=== PATIENT | male | born 1950 | race Caucasian/White ===

== ENCOUNTER 2017-03-11 06:04 | Inpatient (IN) | payer OTHER ==
[2017-03-01 09:45] VITALS: BMI 36.0
--- NOTE | 2017-03-01 10:21 | PAT Medication Instructions ---
Service Date Mar 01, 2017. Current Home Medication List Acetaminophen (Tylenol), 650 MG PO PRN Ascorbic Acid (Vitamin C), 1,000 MG PO QPM Aspirin (Aspirin Ec), 81 MG PO QAM Atenolol (Tenormin), 50 MG PO QAM Cholecalciferol (Vitamin D3), 1 TAB PO QPM Glipizide (Glucotrol), 10 MG PO QPM Ibuprofen Tab (Advil), 400 MG PO PRN Lisinopril (Zestril), 10 MG PO QAM Loratadine (Claritin), 10 MG PO PRN Metformin Hcl (Glucophage Ext Rel), 1,000 MG PO BID Multivitamin (Multivitamin), 1 TAB PO QPM Omeprazole (Prilosec), 20 MG PO QPM Vitamin E (Vitamin E 400 Iu), 400 INTER.UNIT PO QPM [Blue Emu], 1 DOSE TOP PRN [Magnesium], 250 MG PO QPM Medication Instructions For Your Scheduled Surgery - Hold the following medications 10 days prior to surgery: Vitamin E (Vitamin E 400 Iu), 400 INTER.UNIT PO QPM - Hold the following medications at surgeon's request: Ibuprofen Tab (Advil), 400 MG PO PRN - Hold the following medications 48 hours prior to surgery: Metformin Hcl (Glucophage Ext Rel), 1,000 MG PO BID - Hold the following medications 24 hours prior to surgery: [Blue Emu], 1 DOSE TOP PRN - Hold the following medications the morning of surgery: Lisinopril (Zestril), 10 MG PO QAM Loratadine (Claritin), 10 MG PO PRN - Take the following medications the morning of surgery with a sip of water OTHERWISE NOTHING TO EAT OR DRINK AFTER MIDNIGHT: Acetaminophen (Tylenol), 650 MG PO PRN (may take if needed up to 4 hours prior to surgery) Aspirin (Aspirin Ec), 81 MG PO QAM Atenolol (Tenormin), 50 MG PO QAM - Take the following medications as scheduled the night before surgery: Acetaminophen (Tylenol), 650 MG PO PRN [Magnesium], 250 MG PO QPM Multivitamin (Multivitamin), 1 TAB PO QPM Omeprazole (Prilosec), 20 MG PO QPM Ascorbic Acid (Vitamin C), 1,000 MG PO QPM Cholecalciferol (Vitamin D3), 1 TAB PO QPM Glipizide (Glucotrol), 10 MG PO QPM If you have any questions please call us at [phone] or [phone] or [phone]
[2017-03-01 11:00] LABS: BASO % 0.6 %; BASO ABS # 0.04 K/uL (0-0.2); COMPLETE YES; EOS % 3.1 %; HEMATOCRIT 44.2 % (42-52); IG% 0.1 %; LYMPH % 33.3 %; LYMPH ABS # 2.25 K/uL (1.2-3.4); MEAN CELL VOLUME 81.3 fL (80-100); MEAN CORPUSCULAR HEMOGLOBIN 27.8 pg (25-34); MEAN CORPUSCULAR HGB CONC 34.2 g/dl (32-36); MEAN PLATELET VOLUME 9.8 fL (7.4-10.4); NEUT % 51.9 %; PLATELET COUNT 176 K/uL (130-400); RED BLOOD COUNT 5.44 M/uL (4.7-6.1); WHITE BLOOD COUNT 6.75 K/uL (4.8-10.8)
[2017-03-01 11:01] LABS: MANUAL MICROSCOPIC REQUIRED? NO; REVIEW REQ? NO; URINE APPEARANCE CLEAR (CLEAR); URINE BILIRUBIN NEG (NEG); URINE COLOR DK YELLOW; URINE NITRITE NEG (NEG); URINE SPECIFIC GRAVITY 1.024 (1.000-1.030); UROBILINOGEN NEG (NEG)
[2017-03-01 11:10] LABS: INR 0.9 (0.9-1.1); PROTHROMBIN TIME (PATIENT) 10.1 SECONDS (9.0-12.0)
[2017-03-01 13:13] LABS: BUN/CREATININE RATIO 16.1 (10-20); CREATININE 1.2 mg/dl (0.60-1.40); POTASSIUM 4.5 mmol/L (3.5-5.1)
--- NOTE | 2017-03-08 13:37 | History and Physical ---
History & Physical Date Mar 08, 2017. Chief Complaint Right knee pain History of Present Illness The patient is a 66 year old male with complaints of right knee pain with known severe DJD. He has failed recent corticosteroid injections. He continues to have significant pain and disability with ADLs. Additional History Hepatic Disease: No Endocrine Disorder: Yes (Type II DM) Kidney Disease: No Hypertension: Yes Heart Disease: No Bleeding Tendencies: No Infectious Diseases: No Other: COPD, Hyperlipidemia Allergies Coded Allergies: No Known Allergies (Verified , 03/01/17) Home Medications Scheduled Acetaminophen (Tylenol), 650 MG PO PRN Ascorbic Acid (Vitamin C), 1,000 MG PO QPM Aspirin (Aspirin Ec), 81 MG PO QAM Atenolol (Tenormin), 50 MG PO QAM Cholecalciferol (Vitamin D3), 1 TAB PO QPM Glipizide (Glucotrol), 10 MG PO QPM Ibuprofen Tab (Advil), 400 MG PO PRN Lisinopril (Zestril), 10 MG PO QAM Loratadine (Claritin), 10 MG PO PRN Metformin Hcl (Glucophage Ext Rel), 1,000 MG PO BID Multivitamin (Multivitamin), 1 TAB PO QPM Omeprazole (Prilosec), 20 MG PO QPM Vitamin E (Vitamin E 400 Iu), 400 INTER.UNIT PO QPM [Blue Emu], 1 DOSE TOP PRN [Magnesium], 250 MG PO QPM Physical Examination Skin: warm/dry Eyes: normal inspection, EOMI ENT: normal ENT inspection Head: normocephalic Neck: supple, no adenopathy Respiratory/Chest: lungs clear Cardiovascular: regular rate, rhythm Abdomen / GI: normal bowel sounds, non tender Extremities: + pertinent finding (Right knee varus aligned, ROM ~ 0-120, mild crepitus ) Addiitonal Comments: Xrays:varus aligned knee with bone on bone arthritis medial compartment, tricompartmental osteophytes Diagnosis Right knee end-stage DJD Plan of Treatment Right total knee arthroplasty
[2017-03-11] VITALS (10 sets, daily range): BP systolic 112–150; BP diastolic 74–94; PULSE 61–93; TEMP 36.3–36.8; O2SAT 94–98; Ht 177.8 cm; Wt 113.7 kg
[~2017-03-11] VITALS: Ht 177.8 cm; Wt 113.7 kg
[~2017-03-11 06:04] MED LIST: ACET-1311 PO; ACETAMINOPHEN 500 MG TAB PO SCH; ASCO10003 PO; ASPI81TA28 PO; ATEN50TA8 PO; BLUE EMU TOP; CEFAZOLIN 2000 MG/60 ML D5W 60 ML IV SCH; CHOL1000 PO; CLR10 PO; CeleBREX 200 MG CAP PO SCH; DEXAMETHASONE 4 MG TAB PO SCH; GABAPENTIN 300 MG CAP PO SCH; GLIP10TA9 PO; IBUP-103 PO; LACTATED RINGER'S 1000ML 1,000 ML IV SCH; LACTATED RINGER'S 1000ML 500 ML IV ONE; LISI-461 PO; MAGNESIUM PO; METF1TAB53 PO; METOCLOPRAMIDE HCL 10 MG TAB PO SCH; MULT-506 PO; PRLSR20 PO; ROPIVACAINE 5MG/ML 30 ML 150 MG, BUPIVACAINE/EPINEPHR 0.5% MPF 30 ML, KETOROLAC TROMETH... INFIL SCH; VITA400C3 PO
[2017-03-11] MEDS ORDERED: FENTANYL CITRATE INJ 50 MCG/1 ML 2 ML VIAL ONE (06:18)
[2017-03-11] MEDS ORDERED: PROPOFOL IV EMULSION 10 MG/ML 20 ML VIAL IV ONE (06:18)
[2017-03-11] MEDS ORDERED: LIDOCAINE HCL 2% 2 ML VIAL (20MG/ML) ONE (06:18)
[2017-03-11] MEDS ORDERED: MIDAZOLAM HCL 1 MG/ML 2ML VIAL ONE (06:19)
[2017-03-11] MEDS: TRANEXAMIC ACID INJ 1,000 MG in SODIUM CHLORIDE 0.9% 100ML 100 ML IV SCH ×2 (06:30→07:15)
[2017-03-11] MEDS ORDERED: DEXAMETHASONE SOD INJ 4 MG/ML VIAL ONE (06:31)
[2017-03-11] MEDS ORDERED: BUPIVACAINE/EPINEPHRINE 0.25% 1:200,000 30 ML VIAL ONE (06:31)
[2017-03-11] MEDS ORDERED: BUPIVACAINE 0.5 % 5 MG/1 ML PF 10ML VIAL ONE (06:31)
[2017-03-11] MEDS ORDERED: POVIDONE-IODINE OP SOLN 30 ML BTL ONE (06:56)
[2017-03-11] MEDS ORDERED: ORTHO JOINT ANESTHETIC ONE (06:56)
[2017-03-11] MEDS ORDERED: BACITRACIN 50000 UNIT VIAL ONE (06:57)
--- NOTE | 2017-03-11 06:57 | History & Physical Bridge Note ---
H&P Re-Evaluation Bridge Note: I have examined the patient, reviewed the History & Physical and in the interval since the performance of the History & Physical I have noted the following changes of clinical significance: No changes noted
[2017-03-11] MEDS ORDERED: ATROPINE SULFATE 0.1 MG/ML 5ML SYR IV PRN (08:00)
[2017-03-11] MEDS ORDERED: EpHEDrine SULFATE INJ 50 MG/ML AMP IV PRN (08:00)
[2017-03-11] MEDS ORDERED: FENTANYL CITRATE INJ 50 MCG/1 ML 2 ML VIAL IV PRN (08:00)
[2017-03-11] MEDS ORDERED: ONDANSETRON INJ 2 MG/ML 2 ML VIAL IV PRN ×2 (08:00→10:00)
[2017-03-11] MEDS ORDERED: PROMETHAZINE HCL INJ 6.25 MG in SODIUM CHLORIDE 0.9% 50ML 50 ML IV PRN (08:00)
--- NOTE | 2017-03-11 09:28 | [facility] Operative Report ---
Operative Report Operative Date Mar 11, 2017. Pre-Operative Diagnosis Right knee end-stage Degenerative Joint Disease Post-Operative Diagnosis same as pre-operative Procedure(s) Performed Right Total Knee Arthroplasty patient's right knee was prepped and draped in usual sterile manner. Limb was exsanguinated with an Esmarch bandage and tourniquet inflated to 300 mmHg. A longitudinal incision was made AquaMED masses used for hemostasis median parapatellar incision was made the patella was everted and the knee was flexed. The F Has removed and next medullary alignment guide was used to perform an osteotomy of the proximal tibia. This bone fragment was removed. Next history of the femur where drill was used to get axis to the femoral canal. The distal femoral cut was made with a 10 mm resection and a size 6 tibia was chosen size to be used. A 1.5 mm anterior shift was utilized to avoid notching. And the distal femoral chamfer cuts were made. Bone fragments removed and meniscal fragments were removed as well. Trial femoral component was impacted in position. A blunt Virginie was used to position the proximal tibia anterior to the femur. Meniscal fragments were removed and a size 5 tibial component was chosen size to be used. Punch was used to create the opening for the tibial spine and a trial reduction was carried out a 9 mm polyethylene gave good soft tissue tension well reaching full extension. Next the patella was reamed patella drill holes were placed and a size size 39 patella was chosen and sized to be used. With all trial components in place the knee was taken through full range of motion was found to track quite nicely all trial components removed joint mix was injected the knee was thoroughly irrigated a bone plug was used to close the femoral canal. And the knee was thoroughly irrigated. Following this the bone was dried and the femoral component was cemented in position and excess cement was removed the tibia was unpresented using the blunt Virginie and the tibial component was cemented in position this excess cement was removed as well and probably was impacted into position. The knee was reduced and held in extension Autumnman hardcorby and the patella was cemented in place. All excess cement was removed and the knee was thoroughly irrigated with pulsatile irrigation once again and the extensor mechanism was closed using #1 Vicryl and cutaneous tissue was closed using 0 Dexon and a sip strip was utilized to close skin. A Silverlon dressing was applied the patient taken to recovery in stable in good condition darion was the market research assistant she was essential throughout out the case including prepping positioning draping delivery driver assistant wound closure and dressing application. Surgeon Dr. Bruno Calvo Computer Console Operator Surgeon(s) Krupa Owens PA-C Estimated Blood Loss 10cc Findings OA Specimens A: Right knee bone and tissue Disposition Recovery Room / PACU I attest to the content of the Intraoperative Record and any orders documented therein. Any exceptions are noted below.
[2017-03-11] MEDS ORDERED: ZOLPIDEM TARTRATE 5 MG TAB PO PRN (10:00)
[2017-03-11] MEDS ORDERED: SOD PHOSPHATE/SOD BIPHOSPHATE ENEMA 132 ML BTL PR PRN (10:00)
[2017-03-11] MEDS ORDERED: BISACODYL 10 MG SUPP PR PRN (10:00)
[2017-03-11] MEDS ORDERED: OXYCODONE HCL IR 5 MG TAB (IMMEDIATE RELEASE) PO PRN (10:00)
[2017-03-11] MEDS ORDERED: ALUMINUM/MAGNESIUM/SIMETH (MAALOX MAX) 30 ML UDC PO PRN (10:00)
[2017-03-11] MEDS ORDERED: LORATADINE 10 MG TAB PO PRN (10:00)
[2017-03-11] MEDS ORDERED: MAGNESIUM HYDROXIDE SUSP 30 ML UDC PO PRN (10:00)
[2017-03-11] MEDS ORDERED: PHARMACY GLYCEMIC MGMT CONSULT PRN (10:15)
--- NOTE | 2017-03-11 10:18 | Anesthesiology Progress Note ---
Anesthesia Post Op Note Date & Time Mar 11, 2017 at 10:18 Vital Signs Pain Intensity: 0 Vital Signs Past 12 Hours Date Time Temp Pulse Resp B/P (MAP) Pulse Ox O2 Delivery O2 Flow Rate FiO2 03/11/17 10:10 75 20 121/70 98 Nasal Cannula 2 03/11/17 10:00 76 16 117/65 98 Nasal Cannula 2 03/11/17 09:50 75 14 109/63 98 Nasal Cannula 2 03/11/17 09:40 36.5 72 14 106/60 98 Nasal Cannula 2 03/11/17 06:38 36.8 61 18 150/94 97 Room Air Notes Mental Status: alert / awake / arousable, participated in evaluation Pt Amnestic to Procedure: Yes Nausea / Vomiting: adequately controlled Pain: adequately controlled Airway Patency, RR, SpO2: stable & adequate BP & HR: stable & adequate Hydration State: stable & adequate Neuraxial Anesthesia: was administered, sensory block is resolving Anesthetic Complications: no major complications apparent
--- NOTE | 2017-03-11 10:20 | DIAGNOSTIC IMAGING REPORT ---
RIGHT KNEE 1 OR 2 VIEWS ROUTINE CLINICAL HISTORY: 66 years-old Male presenting with RIGHT OSTEOARTHRITIS. TECHNIQUE: Frontal and crosstable lateral views of the right knee were obtained. COMPARISON: None. FINDINGS: Total right knee arthroplasty with patellar resurfacing. No malalignment or evidence of hardware complication. Calcification along the medial tibial plateau may relate to ossification within the distal medial collateral ligament as the underlying cortex of the medial tibial plateau appears grossly intact. A surgical drain is noted in the operative bed with soft tissue emphysema. Cortical irregularity along the lateral aspect of the proximal fibular diaphysis is not well evaluated due to suboptimal positioning on frontal view, indeterminate. IMPRESSION: 1. Postsurgical changes of total right knee arthroplasty with patellar resurfacing. No gross hardware convocation. Electronically signed by: Sixto Hardwick M.D. 03/11/2017 10:19 AM Dictated Date/Time: 03/11/2017 10:16 AM
[2017-03-11] MEDS ORDERED: GLUCAGON FOR INJ 1 MG VIAL SQ PRN (10:30)
[2017-03-11] MEDS ORDERED: DEXTROSE 50% 50 ML SYR IV PRN (10:30)
[2017-03-11] MEDS ORDERED: GLUCOSE 40% GEL 15 GM TUBE PO PRN (10:30)
[2017-03-11] MEDS ORDERED: GLUCOSE 10 TABS/TUBE PO PRN (10:30)
--- NOTE | 2017-03-11 10:43 | Pharmacy Progress Note ---
Glycemic Control Intl Consult Date of Service Mar 11, 2017. Scope Glycemic Pharmacist consulted by Maribell Owens on 03/11/17 for glycemic control and to write orders per [facility] inpatient glycemic control protocol Objective Weight (Kilograms): 113.70 Accuchecks BSG (last 24hrs): Test 03/11/17 06:33 03/11/17 09:43 Bedside Glucose 185 mg/dl (70-99) 184 mg/dl (70-99) Recent Pertinent Medications Outpatient Anti-diabetic Regimen: * glipizide 10mg PO q PM * metformin 1000mg PO BID Risk Factors for Insulin Resistance: * Steroids: Dexamethasone 8mg PO x1 pre-operatively, Dexamethasone 4mg IV pre- operatively, Dexamethasone 8mg Po x1 03/12 * Infection: cefazolin perioperatively * IVF: LR --> NSS * Recent Surgery: POD #0 right TKA * Diet: Regular Assessment & Plan ASSESSMENT: * ADA & AACE recommend a goal blood sugar range 140-180 mg/dl for the majority of critically ill & non-critically ill patients. However, more stringent targets may be selected in individual cases. Will utilize more stringent goal of 110-140mg/dl based on patient age & comorbidities. Additionally, tighter glycemic control is warranted to facilitate wound/infection healing. * Type 2 diabetic who will be admitted following a right TKA * BSG on admission elevated prior to surgery at 185mg/dL * will begin SQ basal/bolus insulin with weight based parameters as well as oral agents starting on 03/12 PLAN FOR INPATIENT GLYCEMIC CONTROL: * Basal insulin: * Lantus 20 units SQ x1 today with Lunch * Lantus (based on BSG) SQ BID starting tonight - if BSG is below 100mg/dL - hold Lantus - if BSG is 100-140mg/dL - give Lantus 10 units - if BSG is above 140mg/dL - give Lantus 15 units * Bolus insulin: * NovoLog SQ AC/HS - Goal Range: Low 110 mg/dL - High 140 mg/dL - Correction Factor: 18 mg/dL/unit - Carb ratio of 1 unit per 6 grams CHO consumed * Oral medications: * Glipizide 10mg PO QD with dinner - begin 03/12 * Metformin 1000mg PO BID with meals - begin 03/12 * A1c - ordered with AM labs on 03/12 * add to discharge instructions * will determine discharge recommendations * Please note that the plan above was derived based on current level of insulin resistance and hospital stress. These recommendations are appropriate for inpatient admission only. Plan of care upon discharge will need to be reassessed to avoid potential outpatient hypo/hyperglycemia. Thank you.
[2017-03-11] MEDS: SODIUM CHLORIDE 0.9% 1000ML 1,000 ML IV SCH ×2 (10:56→20:07)
[2017-03-11] MEDS: KETOROLAC TROMETHAMINE 15 MG/ML VIAL IV. SCH ×3 (12:09→23:49)
[2017-03-11] MEDS: INSULIN ASPART 100 UNITS/ML 3 ML PEN SC SCH ×3 (12:11→21:17)
[2017-03-11] MEDS ORDERED: INSULIN GLARGINE SOLOSTAR 100 UNITS/ML 3 ML PEN SC SCH ×2 (12:30→21:00)
[2017-03-11] MEDS: ACETAMINOPHEN 500 MG TAB PO SCH ×2 (13:52→21:06)
[2017-03-11] MEDS ORDERED: CEFAZOLIN IV 1,000 MG in DEXTROSE 5% 50ML 50 ML IV SCH (16:00)
[2017-03-11] MEDS: CEFAZOLIN IV 2,000 MG in DEXTROSE 5% 50ML 50 ML IV SCH ×2 (16:08→23:49)
[2017-03-11] MEDS: ASPIRIN 81 MG ECTAB PO SCH (21:06)
[2017-03-11] MEDS: SENNA 8.6 MG TAB PO SCH (21:06)
[2017-03-11] MEDS: MULTIVITAMIN TAB PO SCH (21:06)
[2017-03-11] MEDS: OXYCODONE HCL 10 MG TABCR (OXYCONTIN) PO SCH (21:06)
[2017-03-12] MEDS ORDERED: INSULIN ASPART 100 UNITS/ML 3 ML PEN SC SCH (02:00)
[2017-03-12 04:03] VITALS: BP 144/71; PULSE 93; TEMP 36.7; O2SAT 97
[2017-03-12] MEDS: ACETAMINOPHEN 500 MG TAB PO SCH ×3 (05:15→21:24)
[2017-03-12] MEDS: KETOROLAC TROMETHAMINE 15 MG/ML VIAL IV. SCH (05:15)
[2017-03-12] MEDS: SODIUM CHLORIDE 0.9% 1000ML 1,000 ML IV SCH (05:16)
[2017-03-12 06:32] LABS: HEMATOCRIT 38.4 % (42-52); MEAN CORPUSCULAR HEMOGLOBIN 28.5 pg (25-34); MEAN CORPUSCULAR HGB CONC 35.7 g/dl (32-36); MEAN PLATELET VOLUME 10.2 fL (7.4-10.4); PLATELET COUNT 179 K/uL (130-400); WHITE BLOOD COUNT 14.35 K/uL (4.8-10.8)
[2017-03-12 07:01] LABS: ESTIMATED AVERAGE GLUCOSE 151 mg/dl; HA1C FLAG Normal (Normal)
[2017-03-12 07:03] LABS: BUN/CREATININE RATIO 18.8 (10-20); CALCIUM 8.3 mg/dl (8.5-10.1); CREATININE 1.4 mg/dl (0.60-1.40); POTASSIUM 4.1 mmol/L (3.5-5.1)
[2017-03-12] MEDS ORDERED: DEXAMETHASONE 4 MG TAB PO SCH (07:30)
[2017-03-12 07:42] VITALS: BP 146/86; PULSE 82; TEMP 36.5; O2SAT 96
--- NOTE | 2017-03-12 08:06 | Orthopedic Progress Note ---
Orthopedic Progress Note Date of Service Mar 12, 2017. Subjective Post OP Day: 1 Reports: feeling well, Denies: chest pain, SOB, nausea / vomiting, light headedness, calf pain Objective calves soft nontender, N/V intact, dressing C/D/I, A&O x3, toes mobile, hemovac drainage (270/150CC PER SHIFT) Date Time Temp Pulse Resp B/P (MAP) Pulse Ox O2 Delivery O2 Flow Rate FiO2 03/12/17 07:42 36.5 82 18 146/86 (106) 96 Room Air 03/12/17 04:03 36.7 93 16 144/71 (95) 97 Room Air 03/11/17 23:58 Room Air 03/11/17 23:14 36.6 93 16 137/75 (95) 95 Room Air 03/11/17 18:53 36.7 91 16 112/74 (87) 94 Room Air 03/11/17 16:05 Room Air 03/11/17 15:43 97 Room Air 03/11/17 14:59 36.6 86 16 132/81 (98) 97 Nasal Cannula 2.0 03/11/17 13:38 83 16 134/79 (97) 98 2.0 03/11/17 12:39 36.6 81 18 144/78 (100) 96 Nasal Cannula 2.0 03/11/17 11:35 76 16 132/81 (98) 98 2.0 03/11/17 11:12 76 16 138/78 (98) 97 2.0 03/11/17 10:40 95 Nasal Cannula 2.0 03/11/17 10:40 36.3 74 18 136/76 (96) 95 Nasal Cannula 2.0 03/11/17 10:40 95 Nasal Cannula 2.0 03/11/17 10:20 36.2 73 15 117/66 98 Nasal Cannula 2 03/11/17 10:10 75 20 121/70 98 Nasal Cannula 2 03/11/17 10:00 76 16 117/65 98 Nasal Cannula 2 03/11/17 09:50 75 14 109/63 98 Nasal Cannula 2 03/11/17 09:40 36.5 72 14 106/60 98 Nasal Cannula 2 Laboratory Results 24 Hours: Test 03/12/17 05:24 Hematocrit 38.4 % Hemoglobin 13.7 g/dL Assessment & Plan Assessment: POD#1 RIGHT TKA Inhouse Planning Pain Management: Celebrex, PO Tylenol, Oxy IR DVT Prophylaxis: TEDs, SCDs, ASA Discharge Planning Discharge Planning: home with oppt (POSSIBLE DC TODAY PENDING HEMOVAC OUTPUT)
[2017-03-12 08:18] VITALS: O2SAT 96
--- NOTE | 2017-03-12 08:28 | Anesthesiology Progress Note ---
Anesthesia Post Op Note Date & Time Mar 12, 2017 at 08:27 Vital Signs Pain Intensity: 2.0 Vital Signs Past 12 Hours Date Time Temp Pulse Resp B/P (MAP) Pulse Ox O2 Delivery O2 Flow Rate FiO2 03/12/17 08:18 96 Room Air 03/12/17 07:42 36.5 82 18 146/86 (106) 96 Room Air 03/12/17 04:03 36.7 93 16 144/71 (95) 97 Room Air 03/11/17 23:58 Room Air 03/11/17 23:14 36.6 93 16 137/75 (95) 95 Room Air Notes Mental Status: alert / awake / arousable, participated in evaluation Pt Amnestic to Procedure: Yes Nausea / Vomiting: adequately controlled Pain: adequately controlled Airway Patency, RR, SpO2: stable & adequate BP & HR: stable & adequate Hydration State: stable & adequate Neuraxial Anesthesia: sensory block is resolving Anesthetic Complications: no major complications apparent
[2017-03-12] MEDS: METFORMIN HCL 500 MG TAB PO SCH ×2 (08:39→18:10)
[2017-03-12] MEDS: LISINOPRIL 10 MG TAB PO SCH (08:39)
[2017-03-12] MEDS: ASPIRIN 81 MG ECTAB PO SCH ×2 (08:39→21:19)
[2017-03-12] MEDS: PANTOprazole SOD 40 MG TAB PO SCH (08:39)
--- NOTE | 2017-03-12 08:42 | Pharmacy Progress Note ---
Glycemic Control Progress Note Date of Service Mar 12, 2017. Scope Glycemic Pharmacist consulted for glycemic control to write orders per [facility] inpatient glycemic control protocol. Objective Accuchecks BSG (last 24hrs): Test 03/11/17 09:43 03/11/17 11:51 03/11/17 17:05 03/12/17 02:03 Bedside Glucose 184 mg/dl (70-99) 262 mg/dl (70-99) 282 mg/dl (70-99) 228 mg/dl (70-99) Test 03/12/17 05:24 03/12/17 08:00 Random Glucose 199 mg/dl (70-99) Bedside Glucose 232 mg/dl (70-99) HbA1c: Test 03/12/17 05:24 Hemoglobin A1c 6.9 % (4.5-5.6) H Recent Pertinent Medications Outpatient Anti-diabetic Regimen: * glipizide 10mg PO q PM * metformin 1000mg PO BID Risk Factors for Insulin Resistance: * Steroids: Dexamethasone 8mg PO x1 pre-operatively, Dexamethasone 4mg IV pre- operatively, Dexamethasone 8mg Po x1 03/12 * Infection: cefazolin perioperatively * IVF: NSS * Recent Surgery: POD #1 right TKA * Diet: T2DM Assessment & Plan ASSESSMENT: 03/11/17 * ADA & AACE recommend a goal blood sugar range 140-180 mg/dl for the majority of critically ill & non-critically ill patients. However, more stringent targets may be selected in individual cases. Will utilize more stringent goal of 110-140mg/dl based on patient age & comorbidities. Additionally, tighter glycemic control is warranted to facilitate wound/infection healing. * Type 2 diabetic who will be admitted following a right TKA * BSG on admission elevated prior to surgery at 185mg/dL * will begin SQ basal/bolus insulin with weight based parameters as well as oral agents starting on 03/1203/12/17 * BSGs elevated postoperatively despite the addition of Lantus and NovoLog * Re-dose Lantus again today since the patient will be receiving a dose of dexamethasone PO * Tighten NovoLog parameters until the effects of dexamethasone begin to dissipate * BSG prior to lunch >250mg/dL * give IV insulin to augment SQ NovoLog * A1c resulted and shows appropriate glycemic control as an outpatient PLAN FOR INPATIENT GLYCEMIC CONTROL: * Basal insulin: * Lantus 20 units SQ x1 this AM * Lantus (based on BSG) SQ x1 tonight - if BSG is below 100mg/dL - hold Lantus - if BSG is 100-140mg/dL - give Lantus 10 units - if BSG is above 140mg/dL - give Lantus 15 units * Re-assess need for further Lantus dosing on 03/13 * Bolus insulin: * NovoLog SQ AC/HS - Goal Range: Low 110 mg/dL - High 140 mg/dL - Correction Factor: 15 mg/dL/unit - Carb ratio of 1 unit per 5 grams CHO consumed * IV insulin: * 5 units IV x1 with lunch to help augment NovoLog As steroids wear off - may consider loosening CF/CR --> CF: 20; CR: 1 :7 * Oral medications: * Glipizide 10mg PO QD with dinner - begin 03/12 * Metformin 1000mg PO BID with meals - begin 03/12 * A1c - ordered with AM labs on 03/12 * add to discharge instructions RECOMMENDATIONS FOR DISCHARGE: * Based on A1c - continue home regimen of glipizide and metformin * Please note that the plan above was derived based on current level of insulin resistance and hospital stress. These recommendations are appropriate for inpatient admission only. Plan of care upon discharge will need to be reassessed to avoid potential outpatient hypo/hyperglycemia. Thank you.
[2017-03-12] MEDS: OXYCODONE HCL 10 MG TABCR (OXYCONTIN) PO SCH ×2 (08:44→21:19)
[2017-03-12] MEDS: INSULIN ASPART 100 UNITS/ML 3 ML PEN SC SCH ×4 (08:48→21:28)
[2017-03-12] MEDS ORDERED: INSULIN GLARGINE SOLOSTAR 100 UNITS/ML 3 ML PEN SC SCH ×2 (09:00→21:00)
[2017-03-12] MEDS ORDERED: MULTIVITAMIN TAB PO SCH (09:00)
--- NOTE | 2017-03-12 10:36 | Discharge Instructions ---
Discharge Instructions Date of Service Mar 12, 2017. Admission Reason for Admission: Right Knee Osteoarthritis Discharge Discharge Diagnosis / Problem: Right Knee Djd Discharge Goals Goal(s): Decrease discomfort, Improve function Activity Recommendations Activity Limitations: per Instructions/Follow-up section Weightbearing Status: Right weightbearing (as tolerated) . Instructions / Follow-Up Instructions / Follow-Up ACTIVITY RECOMMENDATIONS: SELF CARE INSTRUCTIONS AFTER TOTAL KNEE REPLACEMENT A. You may need to continue a physical therapy program after discharge from the hospital. There are several options available to you. Your doctor will assist you in selecting the best one for you. 1. An out-patient facility 2 to 3 times a week for therapy or home therapy. 2. Continue working on all exercises taught to you in the hospital. Your goals should be to increase bending of your knee to 90 degrees and beyond and to fully straighten your knee. B. You may progress at your own pace from walking with a walker or crutches to a cane; then to no assistive devices. C. Make walking a part of your daily routine. Be up as much as comfortable with rest periods throughout the day. Rest with leg elevation is very important. Use the ice wrap frequently for the first 3-4 weeks. D. There are no restrictions on activities. You may ride in a car, shop, participate in medical social worker and all social activities. E. Wear the long elastic stockings (KRISTEN hose) 20 hours a day for 2 weeks after surgery. They can be removed several times a day for laundering and for a bath. F. You may shower, no tub baths until cleared by your doctor. SPECIAL CARE INSTRUCTIONS: VERY IMPORTANT TO READ AND REVIEW A. There are a few signs you need to watch for after you are home. Call [facility] if you notice any of the followin. Increased severe knee pain. Some pain is expected especially when you exercise. 2. Increased swelling in your leg or knee; pain or swelling of the calf muscle in either lower leg. 3. Any fluid drainage from the incision. 4. Shortness of breath or chest pain. B. Please call [facility] at if you have any concerns or questions about your operation or recovery. The doctor or his nurse will return your call promptly. C. You must take antibiotics before dental work, bladder, bowel or other surgery. Your doctor will provide you with a permanent care to carry describing this precaution. IMPORTANT: * REMEMBER TO TAKE ASPIRIN, 81 MG, TWICE DAILY FOR 4 WEEKS UNLESS OTHERWISE DIRECTED. THIS IS YOUR BLOOD THINNER. * HIGH RISK PATIENTS MAY BE PRESCRIBED A STRONGER BLOOD THINNER. THIS WILL BE PROVIDED AT DISCHARGE. * CALL IF INCREASED PAIN, REDNESS, DRAINAGE OR FEVER GREATER THAT 101. * WEAR KRISTEN HOSE 20 HOURS PER DAY FOR 2 WEEKS. * Change dressing daily. If wound remains dry, you may change every other day. Keep some time of dressing over the wound to protect it. You may shower in 48 to 72 hours if you are having minimal to no drainage. No tub baths. Do not soak the wound. . FOLLOW UP VISIT: If appointment is not already scheduled: Please call [facility] to make a follow-up appointment for 2 weeks after your surgery at . Current Hospital Diet Patient's current hospital diet: Diabetes Type 2 Diet Discharge Diet Recommended Diet: Diabetes Type 2 Diet Procedures Procedures Performed: Right Total Knee Arthroplasty patient's right knee was prepped and draped in usual sterile manner. Limb was exsanguinated with an Esmarch bandage and tourniquet inflated to 300 mmHg. A longitudinal incision was made AquaMED masses used for hemostasis median parapatellar incision was made the patella was everted and the knee was flexed. The F Has removed and next medullary alignment guide was used to perform an osteotomy of the proximal tibia. This bone fragment was removed. Next history of the femur where drill was used to get axis to the femoral canal. The distal femoral cut was made with a 10 mm resection and a size 6 tibia was chosen size to be used. A 1.5 mm anterior shift was utilized to avoid notching. And the distal femoral chamfer cuts were made. Bone fragments removed and meniscal fragments were removed as well. Trial femoral component was impacted in position. A blunt Virginie was used to position the proximal tibia anterior to the femur. Meniscal fragments were removed and a size 5 tibial component was chosen size to be used. Punch was used to create the opening for the tibial spine and a trial reduction was carried out a 9 mm polyethylene gave good soft tissue tension well reaching full extension. Next the patella was reamed patella drill holes were placed and a size size 39 patella was chosen and sized to be used. With all trial components in place the knee was taken through full range of motion was found to track quite nicely all trial components removed joint mix was injected the knee was thoroughly irrigated a bone plug was used to close the femoral canal. And the knee was thoroughly irrigated. Following this the bone was dried and the femoral component was cemented in position and excess cement was removed the tibia was unpresented using the blunt Virginie and the tibial component was cemented in position this excess cement was removed as well and probably was impacted into position. The knee was reduced and held in extension Mussman hardened and the patella was cemented in place. All excess cement was removed and the knee was thoroughly irrigated with pulsatile irrigation once again and the extensor mechanism was closed using #1 Vicryl and cutaneous tissue was closed using 0 Dexon and a sip strip was utilized to close skin. A Silverlon dressing was applied the patient taken to recovery in stable in good condition geniculate was the assistant manager retail she was essential throughout out the case including prepping positioning draping assistant foreman wound closure and dressing application. Pending Studies Studies pending at discharge: no Laboratory Results Hemoglobin A1c Test 03/12/17 05:24 Range/Units Estimated Average Glucose 151 mg/dl Hemoglobin A1c 6.9 H 4.5-5.6 % Medical Emergencies . Who to Call and When: Medical Emergencies: If at any time you feel your situation is an emergency, please call 911 immediately. . Non-Emergent Contact Non-Emergency issues call your: Surgeon Call Non-Emergent contact if: temperature is above 101.5, your pain is not controlled, your pain is worsening, wound has increased drainage, wound has increased redness . "Provider Documentation" section prepared by Poncho Maguire. . VTE Core Measure Inpt VTE Proph given/why not?: Other Anticoagulation, T.E.D. Stockings, SCD's [place] Drug Monitoring Program Search Results: patient reviewed within database, no issues identified
[2017-03-12 12:09] VITALS: BP 156/92; PULSE 84; TEMP 36.7; O2SAT 97
[2017-03-12] MEDS ORDERED: INSULIN REGULAR 5 UNITS in SYRINGE 4.95 ML IV SCH (12:15)
[2017-03-12 15:21] VITALS: BP 147/82; PULSE 85; TEMP 36.5; O2SAT 96
[2017-03-12] MEDS ORDERED: ACET-24 PO (16:14)
[2017-03-12] MEDS ORDERED: ASPI81TA28 PO (16:14)
[2017-03-12] MEDS ORDERED: SNK PO (16:14)
[2017-03-12] MEDS ORDERED: RXC5 PO (16:14)
[2017-03-12] MEDS ORDERED: OXYSR10 PO (16:14)
[2017-03-12] MEDS: SENNA 8.6 MG TAB PO SCH (21:19)
[2017-03-12] MEDS: MULTIVITAMIN TAB PO SCH (21:20)
[2017-03-12] MEDS: CeleBREX 200 MG CAP PO SCH (21:20)
[2017-03-12 23:55] VITALS: BP 153/75; PULSE 81; TEMP 36.7; O2SAT 96
[2017-03-13] MEDS: ACETAMINOPHEN 500 MG TAB PO SCH (05:11)
--- NOTE | 2017-03-13 07:07 | Orthopedic Progress Note ---
Orthopedic Progress Note Date of Service Mar 13, 2017. Subjective Post OP Day: 2 Reports: feeling well, pain controlled w PO medications, Denies: complaints Additional Notes: States he had some excess drainage from the knee after the drain was dc'd but it stopped shortly thereafter. Objective calves soft nontender, N/V intact, dressing C/D/I, A&O x3, toes mobile Date Time Temp Pulse Resp B/P (MAP) Pulse Ox O2 Delivery O2 Flow Rate FiO2 03/13/17 00:50 Room Air 03/12/17 23:55 36.7 81 16 153/75 (101) 96 Room Air 03/12/17 16:10 Room Air 03/12/17 15:21 36.5 85 16 147/82 (103) 96 Room Air 03/12/17 12:09 36.7 84 18 156/92 (113) 97 Room Air 03/12/17 08:18 96 Room Air 03/12/17 07:42 36.5 82 18 146/86 (106) 96 Room Air 03/12/17 07:20 Room Air Assessment & Plan Assessment: POD#2 RIGHT TKA Plan: Plan for dc to home after AM PT Inhouse Planning Pain Management: Celebrex, Oxycontin, Morphine, PO Tylenol, Oxy IR DVT Prophylaxis: TEDs, SCDs, ASA Discharge Planning Discharge Planning: home with oppt (POSSIBLE DC TODAY PENDING HEMOVAC OUTPUT) Pain Management: Oxycontin, PO Tylenol, Oxy IR DVT Prophylaxis: TEDs, ASA Therapy: Physical Therapy
[2017-03-13 07:14] VITALS: BP 156/84; TEMP 36.6; O2SAT 98
[2017-03-13] MEDS: INSULIN ASPART 100 UNITS/ML 3 ML PEN SC SCH (08:23)
[2017-03-13] MEDS: CeleBREX 200 MG CAP PO SCH (08:24)
[2017-03-13] MEDS: ASPIRIN 81 MG ECTAB PO SCH (08:25)
[2017-03-13] MEDS: METFORMIN HCL 500 MG TAB PO SCH (08:25)
[2017-03-13] MEDS: LISINOPRIL 10 MG TAB PO SCH (08:26)
[2017-03-13] MEDS: OXYCODONE HCL 10 MG TABCR (OXYCONTIN) PO SCH (08:26)
[2017-03-13] MEDS: PANTOprazole SOD 40 MG TAB PO SCH (08:26)
[2017-03-13] MEDS ORDERED: INSULIN GLARGINE SOLOSTAR 100 UNITS/ML 3 ML PEN SC SCH (09:00)
[2017-03-13 09:11] VITALS: BP 156/84; PULSE 81; TEMP 36.6; O2SAT 98
--- NOTE | 2017-03-22 08:37 | DISCHARGE SUMMARY ---
DISCHARGE DIAGNOSIS: Degenerative joint disease, right knee. SECONDARY DIAGNOSIS: Type 2 diabetes. CONSULTS: None. COMPLICATIONS: None. PROCEDURE: The patient underwent a right total knee arthroplasty with Dr. Calvo on 03/11/2017. BRIEF HISTORY: Please see previously dictated history and physical. HOSPITAL SUMMARY: The patient was admitted on the above day for the above procedure. Procedure went without complication. Postop day 1, the patient was feeling well without complaints. He denied chest pain or shortness of breath. Vital signs were stable. He was afebrile. Dressing was clean, dry and intact. He was neurovascularly intact. Calves were soft and nontender. Hemovac drained 270 and 150 mL per shift. Hemoglobin was 13.7. The patient began physical therapy per protocol. Postop day 2, the patient was doing well. He had some excessive drainage from the knee after the drain was pulled but it stopped shortly after. Vital signs were stable. He was afebrile. Dressing was clean, dry and intact. He was neurovascularly intact. Calves were soft and nontender. The patient continued to progress with physical therapy. He was discharged to home later that day in stable condition. For further review please see the chart. Lab, x-ray data and discharge instructions as per chart.
== END 2017-03-13 11:05 | disposition home or self-care (01) | DRG 470 ==
LOC: C.ACU 06:04 → C.3E 06:50 → ENRESERV 10:14
PROC: 0SRC0J9 Replacement of Right Knee Joint with Synthetic Substitute, Cemented, Open Approach (ICD-10-PCS; principal; 2017-03-11 08:00)
DX: M17.11 Unilateral primary osteoarthritis, right knee (principal); M21.161 Varus deformity, not elsewhere classified, right knee; I10 Essential (primary) hypertension; E11.9 Type 2 diabetes mellitus without complications; K21.9 Gastro-esophageal reflux disease without esophagitis; E66.9 Obesity, unspecified; Z68.36 Body mass index [BMI] 36.0-36.9, adult; Z96.652 Presence of left artificial knee joint; Z79.82 Long term (current) use of aspirin; Z79.84 Long term (current) use of oral hypoglycemic drugs; Z79.899 Other long term (current) drug therapy

== ENCOUNTER → 2017-11-07 | Outpatient (CLI) | payer OTHER ==
[~2017-11-07] MED LIST changes: -ACET-1311 PO; +ACET-24 PO; -ACETAMINOPHEN 500 MG TAB PO SCH; -CEFAZOLIN 2000 MG/60 ML D5W 60 ML IV SCH; -CeleBREX 200 MG CAP PO SCH; -DEXAMETHASONE 4 MG TAB PO SCH; -GABAPENTIN 300 MG CAP PO SCH; -IBUP-103 PO; -LACTATED RINGER'S 1000ML 1,000 ML IV SCH; -LACTATED RINGER'S 1000ML 500 ML IV ONE; -METOCLOPRAMIDE HCL 10 MG TAB PO SCH; +OXYSR10 PO; -ROPIVACAINE 5MG/ML 30 ML 150 MG, BUPIVACAINE/EPINEPHR 0.5% MPF 30 ML, KETOROLAC TROMETH... INFIL SCH; +RXC5 PO; +SNK PO
[2017-11-07 10:10] LABS: BASO % 0.2 %; BASO ABS # 0.01 K/uL (0-0.2); EOS % 2.7 %; EOS ABS # 0.14 K/uL (0-0.5); HEMATOCRIT 39.9 % (42-52); HEMOGLOBIN 14.1 g/dL (14.0-18.0); IG# 0.02 K/uL (0.00-0.02); LYMPH % 31.7 %; LYMPH ABS # 1.63 K/uL (1.2-3.4); MEAN CELL VOLUME 81.1 fL (80-100); MEAN CORPUSCULAR HEMOGLOBIN 28.7 pg (25-34); MEAN CORPUSCULAR HGB CONC 35.3 g/dl (32-36); MEAN PLATELET VOLUME 9.5 fL (7.4-10.4); MONO % 11.7 %; NEUT % 53.3 %; NEUT ABS # 2.75 K/uL (1.4-6.5); PLATELET COUNT 172 K/uL (130-400); RED CELL DISTRIBUTION WIDTH SD 41.5 fL (36.4-46.3); WHITE BLOOD COUNT 5.15 K/uL (4.8-10.8)
--- NOTE | 2017-11-07 13:36 | DIAGNOSTIC IMAGING REPORT ---
BONE SCAN 3 PHASE LIMITED CLINICAL HISTORY: 67 years-old Male presenting with PAIN/SWELLING, HX TKA. TECHNIQUE: Following the IV administration of 25 mCi of technetium 99m MDP, three-phase bone scan of the knees was performed. Anterior flow images as well as anterior and posterior blood pool phase images were acquired. Bone phase imaging of knees was performed at three hours in multiple obliquities. COMPARISON: Plain radiographs of the right knee from 03/11/2017. FINDINGS: On initial flow imaging, hyperemia in the right knee relative to the left. Otherwise expected distribution of radiotracer in the vasculature. On subsequent blood pool phase imaging, persistent asymmetric radiotracer uptake in the right knee surrounding the prosthesis. Bilateral total knee prostheses evident. On bone phase imaging, persistent asymmetric radiotracer uptake surrounds the right knee prosthesis. A lesser degree of focal radiotracer uptake surrounding the left knee prosthesis. IMPRESSION: 1. Three-phase positive bone scan at the right knee in the region of the total right knee arthroplasty. This is suspicious for osteomyelitis. 2. Postsurgical changes of total left knee arthroplasty with focal radiotracer uptake on bone phase imaging only most likely expected postsurgical osseous changes. The report will be called/faxed according to standard departmental protocol. Electronically signed by: Sixto Hardwick M.D. 11/07/2017 1:35 PM Dictated Date/Time: 11/07/2017 1:29 PM
== END | disposition home or self-care (01) ==
LOC: C.NUCL 09:24
DX: T84.039A Mechanical loosening of unspecified internal prosthetic joint, initial encounter (principal); X58.XXXA Exposure to other specified factors, initial encounter

== ENCOUNTER → 2018-03-17 | Outpatient (CLI) | payer OTHER ==
[~2018-03-17] MED LIST changes: +ASPI-232 PO; +GLC5 PO; +MAGN250T22 PO; +METO25TA3 PO; +VITA1TAB4 PO; +[UNRECOGNIZED DRUG - CODE] PO
--- NOTE | 2018-03-17 16:20 | DIAGNOSTIC IMAGING REPORT ---
CHEST 2 VIEWS ROUTINE HISTORY: 67 years-old Male PAT preoperative exam. No acute chest complaints COMPARISON: None available TECHNIQUE: PA and lateral views of the chest FINDINGS: Cardiomediastinal and hilar silhouettes are within normal limits. No pneumothorax, pleural effusion, focal airspace consolidation or overt pulmonary edema. Degenerative changes of the shoulders and spine. IMPRESSION: No acute process. The above report was generated using voice recognition software. It may contain grammatical, syntax or spelling errors. Electronically signed by: Miky Mata M.D. 03/17/2018 4:19 PM Dictated Date/Time: 03/17/2018 4:18 PM
[2018-03-17 16:29] LABS: BASO % 0.6 %; BASO ABS # 0.04 K/uL (0-0.2); EOS % 3.8 %; EOS ABS # 0.24 K/uL (0-0.5); HEMATOCRIT 40.5 % (42-52); IG# 0.04 K/uL (0.00-0.02); LYMPH % 25.8 %; LYMPH ABS # 1.62 K/uL (1.2-3.4); MEAN CORPUSCULAR HEMOGLOBIN 28.7 pg (25-34); MEAN CORPUSCULAR HGB CONC 34.6 g/dl (32-36); MONO % 9.4 %; MONO ABS # 0.59 K/uL (0.11-0.59); NEUT % 59.8 %; NEUT ABS # 3.75 K/uL (1.4-6.5); PLATELET COUNT 177 K/uL (130-400); RED CELL DISTRIBUTION WIDTH SD 42.3 fL (36.4-46.3); WHITE BLOOD COUNT 6.28 K/uL (4.8-10.8)
[2018-03-17 16:41] LABS: PTT PATIENT 25.3 SECONDS (21.0-31.0)
[2018-03-17 17:04] LABS: BLOOD UREA NITROGEN 23 mg/dl (7-18); CALCIUM 8.8 mg/dl (8.5-10.1); CARBON DIOXIDE 27 mmol/L (21-32); CREATININE 1.31 mg/dl (0.60-1.40); GLUCOSE 234 mg/dl (70-99); POTASSIUM 4.4 mmol/L (3.5-5.1); SODIUM 137 mmol/L (136-145)
[2018-03-18 06:08] LABS: HEMOGLOBIN A1C 7.4 % (4.5-5.6)
== END | disposition home or self-care (01) ==
LOC: C.CPL 13:32
DX: Z01.818 Encounter for other preprocedural examination (principal); M17.12 Unilateral primary osteoarthritis, left knee